=== PATIENT | female | born 1950 | race Caucasian/White ===

== ENCOUNTER 2017-01-10 10:52 | Outpatient (CLI) | payer OTHER ==
[2017-01-10 11:34] LABS: BASOPHILS % 0.6 (0.0-1.5); EOSINOPHILS % 1.1 % (0.0-6.8); LYMPHOCYTES # 1.6 # k/uL (0.6-4.0); MEAN CORPUSCULAR HEMOGLOBIN 30.3 pg (28.0-34.0); MONOCYTES # 0.2 # k/uL (0.0-0.9); MONOCYTES % 3.2 % (0.0-11.0); NEUTROPHILS # 5.6 # k/uL (1.4-7.7)
[2017-01-10 11:56] LABS: eGFR (African) > 60; eGFR (Non-African) > 60
--- NOTE | 2017-01-10 18:34 | Diagnostic Imaging Report ---
[facility] [address] [facility].[address] [address] Report Submission Date: Jan 10, 2017 12:52:03 PM CDT Patient Study Name: SRAVANI WELCH Date: Jan 10, 2017 12:04:23 PM CDT Modality Type: CT\SR Gender: F Description: CT ABD & PELVIS W/ CON : 50 Institution: [facility] Physician JACOB GARCÍA CT abdomen and pelvis with contrast CLINICAL HISTORY: Abdominal pain, nausea and vomiting. Contrast administered: 94 mL of Omnipaque. TECHNIQUE: CT of the abdomen and pelvis is performed with intravenous infusion of contrast. Sagittal and coronal reconstructions are performed by the technologist. FINDINGS: The liver is hypodense consistent with hepatic steatosis. There is no focal abnormality in the liver or spleen. Gallbladder is surgically absent. There is no pancreatic or adrenal abnormality. The kidneys demonstrate symmetric enhancement. There is no retroperitoneal mass or significant adenopathy. Vascular calcification is present in the abdominal aorta without evidence of aneurysm. The appendix is not identified, but there is no evidence of appendicitis. Bladder is unremarkable. There is narrowing of the disc spaces at multiple levels in lumbar spine consistent with degenerative disc disease. Vertebral hemangiomas are present in the L1 and L3 vertebral bodies. Bladder is unremarkable. There is no free fluid in the pelvis or abdomen. Scattered diverticula are present in the descending and sigmoid colon without evidence of diverticulitis. IMPRESSION: Postoperative changes. Vascular calcification. Diverticulosis. Hepatic steatosis. Electronically signed on Jan 10, 2017 12:52:03 PM CDT by: Darren SNOW
== END 2017-01-10 10:53 ==
LOC: RAD 10:52
PROVIDERS: ATTEND Physician Assistant
DX: R10.9 Unspecified abdominal pain (principal); E11.9 Type 2 diabetes mellitus without complications
CPT/HCPCS: 74177; 80053; 85025; 85651; Q9966

== ENCOUNTER 2017-01-13 01:34 | Emergency (ER) | payer OTHER ==
--- NOTE | 2017-01-13 02:21 | ED Physician Documentation ---
Female Urogenital Problems - HISTORIAN Historian: patient - HPI Stated Complaint: abd pain Chief Complaint: Female Urogenital Problems Additional Information: 11 days of RLQ and suprapubic crampy achy abdominal pain. seen in clinic friday and labs and CT done. Only finding was fatty liver, and diverticulosis without diverticulitis. She has been drinking lots of liquids since then and quit taking her diabetic meds. tonight the pain became suprapubic with radiation to both flanks, she has had frequency and has pelvic pain when she voids. she's convinced she has diverticulitis. Her lab data was unremarkable. She complains of chronic bowel issues Onset: days ago Severity: mild Location of Pain: pelvic pain, flank pain Further Comments: no - Associated Symptoms Urinary Symptoms: frequent urination, discomfort w/ urination, urgency w/ urination, pain w/ urination. denies: burning w/ urination Discharge: denies: vaginal discharge - ROS CONST: none GI/: denies: nausea, vomiting, diarrhea, black stools CVS/RESP: none EYES/ENT: none NEURO/PSYCH: none MS/SKIN/LYMPH: none - PAST HX Past History: none Other History: bladder infection, diabetes Type 2 Surgeries/Procedures: appendectomy, salpingo-oophorectomy, hysterectomy, cholecystectomy Allergies/Adverse Reactions: Allergies Allergy/AdvReac Type Severity Reaction Status Date / Time No Known Allergies Allergy Verified 01/13/17 01:47 - SOCIAL HX Smoking History: non-smoker Alcohol Use: none Drug Use: none - FAMILY HX Family History: none - VITAL SIGNS Vital Signs: Vital Signs Temp Pulse Resp BP Pulse Ox 98.3 F 113 H 18 156/96 97 01/13/17 01:36 01/13/17 01:36 01/13/17 01:36 01/13/17 01:36 01/13/17 01:36 - REVIEWED ASSESSMENTS Nursing Assessment Reviewed: Yes Vitals Reviewed: Yes Progress - Results/Orders Results/Orders: discussed option of outpt vs inpt and resulting surgical indications, they chose outpt for now, and will monitor and discuss with PCP tomorrow. My opinion is it's new enough that should be able to successfully treat as outpt. warned what to expect and look for. ED Results Lab/Radiology - Lab Results Lab Results: wbc nl liver enzymes nl - Radiology Radiology Impressions: ct shows new diverticulitis - Orders Orders: ED Orders Category Date Time Status UA W MICRO [UA W/MICRO IF INDICATED] Routine Lab 01/13/17 02:16 Ordered Female Urogenital Problems - EXAM General Appearance: moderate distress, anxious EENT: ENT inspection normal, no signs of dehydration Neck: nml inspection Respiratory: no resp. distress CVS: tachycardia Abdomen: soft, non-tender, no distention, tenderness (suprapubic). No: guarding , rebound, McBurney's point tender Skin: color nml, no rash, warm,dry Extremities: non-tender, normal range of motion, no evidence of injury Neuro: oriented X3, cognition normal Discharge Clincal Impression: Diverticulitis large intestine Qualifiers: Diverticulitis bleeding: without bleeding Diverticulitis complication: without perforation or abscess Qualified Code(s): K57.32 - Diverticulitis of large intestine without perforation or abscess without bleeding Condition: Stable Disposition: 01 HOME, SELF-CARE Decision to Admit: NO Date of Decison to Admit: 01/13/17 Decision Time: 04:04
[2017-01-13] MEDS ORDERED: HYOSCYAMINE SULFATE 0.125 MG TAB.SUBL SL ONE (02:40)
[2017-01-13] MEDS ORDERED: PHENAZOPYRIDINE HCL 200 MG TABLET PO ONE (02:41)
[2017-01-13] MEDS ORDERED: PHARMACY KEY 1 EACH EACH MC ONE (03:18)
[2017-01-13 03:20] LABS: eGFR (African) > 60; eGFR (Non-African) > 60
[2017-01-13 03:30] LABS: BASOPHILS % 0.3 (0.0-1.5); EOSINOPHILS % 0.4 % (0.0-6.8); LYMPHOCYTES # 0.8 # k/uL (0.6-4.0); MEAN CORPUSCULAR HEMOGLOBIN 30.2 pg (28.0-34.0); MONOCYTES # 0.4 # k/uL (0.0-0.9); MONOCYTES % 3.3 % (0.0-11.0)
[2017-01-13] MEDS ORDERED: PIPERACILLIN SODIUM/TAZOBACTAM 3.375 GM in 0.9 % SODIUM CHLORIDE 50 ML IV ONE (03:59)
[2017-01-13] MEDS ORDERED: PIPERACILLIN SODIUM/TAZOBACTAM 3.375 GM VIAL IV ONE (04:00)
[2017-01-13] MEDS ORDERED: 0.9 % SODIUM CHLORIDE 100 ML IV ONE (04:02)
[2017-01-13] MEDS ORDERED: HYDROcodone /APAP 10/325 1 EACH TABLET PO ONE (04:10)
[2017-01-13] MEDS ORDERED: metroNIDAZOLE 500 MG TABLET PO ONE (04:11)
[2017-01-13 04:59] VITALS: BP 112/65
[2017-01-13 05:51] LABS: APPEARANCE,URINE CLEAR (CLEAR); COLOR,URINE YELLOW (YELLOW); OCCULT BLOOD,URINE NEGATIVE (NEGATIVE); UROBILINOGEN URINE 0.2 Eu (0.2-1.0)
--- NOTE | 2017-01-13 06:05 | Diagnostic Imaging Report ---
Report Submission Date: Jan 13, 2017 3:39:11 AM CDT Patient ~ Study Name: SRAVANI WELCH ~ Date: Jan 13, 2017 3:12:40 AM CDT ~ Modality Type: CT\SR Gender: F ~ Description: CT ABD & PELVIS W/O CO : 50 ~ Institution: [facility] Physician: PHUONG MORGAN ~ ~ ~ ~ Computed tomography of the abdomen and pelvis without contrast History: Suprapubic pain Findings: Transverse abdomen and pelvis sections are obtained without contrast and are compared to an exam performed 3 days ago. Liver, spleen, kidneys, pancreas, and adrenals are unremarkable. Mild atherosclerosis, multilevel lumbar spondylosis, and cholecystectomy are observed. Bile ducts are normal in caliber. A few descending colon diverticula are present. No acute abdominal abnormality is observed. Pelvic sections reveal interval development of acute sigmoid diverticulitis. Hysterectomy and appendectomy have been performed. The urinary bladder is unremarkable. A small amount of free pelvic fluid is observed without discrete abscess formation. Impression: 1. Interval development of acute sigmoid diverticulitis with small amount of free pelvic fluid but no discrete drainable abscess. 2. Atherosclerosis, cholecystectomy, lumbar spondylosis, left colonic diverticulosis, hysterectomy, and appendectomy noted. ~ Electronically signed on Jan 13, 2017 3:39:11 AM CDT by: Clemente SNOW
== END 2017-01-13 04:45 | disposition home or self-care (01) ==
LOC: ED 01:34
DX: K57.32 Diverticulitis of large intestine without perforation or abscess without bleeding (principal); E11.9 Type 2 diabetes mellitus without complications
CPT/HCPCS: 74176; 80053; 80061; 81002; 82150; 83036; 85025; 99283; A9270-GY; J2543; S1016

== ENCOUNTER 2017-01-24 08:41 | Outpatient (CLI) | payer OTHER | END 2017-01-24 08:42 | LOC: LAB 08:41 | PROVIDERS: ATTEND Family Medicine | DX: E11.9 Type 2 diabetes mellitus without complications (principal) | CPT/HCPCS: 82043 ==

== ENCOUNTER 2017-03-17 08:18 | Day surgery (SDC) | payer OTHER ==
--- NOTE | 2017-03-17 11:36 | GI Report ---
REFERRING PHYSICIAN: Dr. Wesly Avila BULLET SLUGS INSPECTOR: Jarocho Judd MD PROCEDURE MEDICATION: Propofol as per anesthesia. INDICATIONS: A 66-year-old woman is referred. She had a recent attack of pain. She had a CAT scan in the ER. This suggested diverticulitis. She has a family history of colon cancer. Her last colonoscopy was 5 years ago. She was referred for the above indications. She presents with occasional discomfort in the right side of the abdomen. No left lower quadrant discomfort. Again, a family history of her mother having colon cancer. The patient has had a previous appendectomy, cholecystectomy, and hysterectomy all from a kind of low midline incision. PROCEDURE PERFORMED: Colonoscopy. PROCEDURE: An Olympus pediatric colonoscope was advanced to the rectum. She does have moderate diverticular disease of the sigmoid colon and descending colon. I do not see obvious diverticulitis. It took some maneuvering. There may be adhesions in the pelvis from her 3 previous surgeries. The colonoscope was slowly advanced all the way to the cecum. The bottom of the cecum and ileocecal valve appeared normal. On slow withdrawal, the cecum, ascending colon , and transverse colon with redundancy. No obvious intraluminal lesions noted. The descending colon and sigmoid colon, again, a lot of redundancy and diverticular disease but no obvious diverticulitis. Retroflexion of the rectum was normal. RECOMMENDATIONS: 1. A high-fiber diet. 2. Would add Metamucil or Benefiber or Citrucel. 3. Again, consider re-looking at her colon in 5 years. cc: Dr. Wesly SNOW
== END 2017-03-17 08:20 ==
LOC: OPSURG 08:18
PROVIDERS: ATTEND Internal Medicine Gastroenterology
DX: K57.92 Diverticulitis of intestine, part unspecified, without perforation or abscess without bleeding (principal); Z80.0 Family history of malignant neoplasm of digestive organs; R10.9 Unspecified abdominal pain
CPT/HCPCS: 45379; J2704; J7120; S1016

== ENCOUNTER 2017-07-10 09:19 | Outpatient (CLI) | payer OTHER ==
[2017-07-10 09:58] LABS: eGFR (African) > 60; eGFR (Non-African) > 60
== END 2017-07-10 09:20 ==
LOC: LAB 09:19
PROVIDERS: ATTEND Family Medicine
DX: E11.9 Type 2 diabetes mellitus without complications (principal); E78.00 Pure hypercholesterolemia, unspecified; I10 Essential (primary) hypertension
CPT/HCPCS: 36415; 80053; 80061; 83036

== ENCOUNTER 2017-12-29 08:19 | Outpatient (CLI) | payer OTHER ==
[2017-12-29 09:30] LABS: eGFR (African) > 60; eGFR (Non-African) > 60
== END 2017-12-29 08:20 ==
LOC: LAB 08:19
PROVIDERS: ATTEND Family Medicine
DX: E11.9 Type 2 diabetes mellitus without complications (principal)
CPT/HCPCS: 36415; 80053; 83036